=== PATIENT | female | born 1945 | race Caucasian/White ===

== ENCOUNTER → 2021-11-27 08:34 | Outpatient (BNVA) | payer MEDICARE, OTHER, SELFPAY | PROVIDERS: Visit Provider Internal Medicine | DX: R76.8 Other specified abnormal immunological findings in serum (principal); M25.50 Pain in unspecified joint; M35.00 Sjogren syndrome, unspecified; G62.9 Polyneuropathy, unspecified; Z11.59 Encounter for screening for other viral diseases; R53.83 Other fatigue | CPT/HCPCS: 36415; 73120; 80053; 81003; 82533; 82550; 82607; 82728; 83516; 83540; 83735; 84425; 84443; 85025; 85651; 86140; 86160; 86162; 86200; 86235; 86255; 86376; 86431; 86704; 86803; 87340; 99204; 99214 ==

== ENCOUNTER 2021-11-27 10:51 | Outpatient (CLI) | payer MEDICARE, OTHER, SELFPAY ==
--- NOTE | 2021-11-27 11:10 | XR_ITS ---
WS: [id number] Right hand, 2 views, 11/27/2021 Clinical Data: R76.8 - Other specified abnormal immunological findings i... Comparison: None. Findings: No fractures or dislocations are seen. The soft tissues are unremarkable. The joint space s are normal XR/XR hand RT 2V [id number] Impression: Negative right hand.
--- NOTE | 2021-11-27 11:10 | XR_ITS ---
WS: [id number] Left hand, 2 views, 11/27/2021 Clinical Data: R76.8 - Other specified abnormal immunological findings i... Comparison: None. Findings: No fractures or dislocations are seen. The soft tissues are unremarkable. The joint spaces are normal No periarticular demineralization or calcifications are seen. XR/XR hand LT 2V [id number] Impression: Negative left hand.
[2021-11-27 11:46] LABS: Add Urine Microscopic? NO; Charge for UA Resulting for Rev
[2021-11-27 11:58] LABS: Bilirubin Urine Neg (Negative); Blood Urine Neg (Negative); Glucose Urine UA Norm (Normal); Ketones Urine Negative (Negative); Leukocyte Esterase Urine Negative (Negative); Nitrate Urine Negative (Negative); Protein Urine Neg (Negative); Specific Gravity, Urine 1.025 (1.005-1.030); Urine Appearance Clear (CLEAR); Urine Color Yellow (Yellow); Urobilinogen Urine Norm (Negative); pH Urine 5 (5-7)
[2021-11-27 12:00] LABS: Basophils # 0.1 10^3/uL (0.0-0.1); Basophils % 1.3 %; Eosinophils # 0.2 10^3/uL (0.0-0.8); Eosinophils % 2.8 %; Hemoglobin 14.7 g/dL (11.5-15.3); Lymphocytes # 1.5 10^3/uL (0.8-4.8); Lymphocytes % 28.7 %; Mean Corpuscular HGB Conc 31.3 g/dL (30.0-36.0); Mean Corpuscular Hemoglobin 30.4 pg (28.0-34.0); Mean Corpuscular Volume 97.3 fl (81-99); Mean Platelet Volume 11.5 fL (7.4-10.4); Monocytes # 0.7 10^3/uL (0.2-0.9); Monocytes % 13.3 %; Neutrophils # 2.83 10^3/uL (1.8-7.7); Neutrophils % 53.7 %; Nucleated Red Blood Cells % 0 %; Platelet Count 175 10^3/cmm (130-400); Red Blood Count 4.83 10^6/uL (4.1-5.3); Red Cell Distribution Width 13.7 % (12.1-15.1); White Blood Count 5.3 10^3/uL (4.0-10.0)
[2021-11-27 12:12] LABS: Erythrocyte Sedimentation Rate 62 mm/hr (0-15)
[2021-11-27 12:31] LABS: Alanine Aminotransferase 15 U/L (0-33); Albumin Level 4.1 g/dL (3.5-5.2); Alkaline Phosphatase 95 IU/L (35-105); Anion Gap 19.2 (5-19); Aspartate Amino Transferase 19 U/L (0-32); Blood Urea Nitrogen 10 mg/dL (8-23); C Reactive Protein 5.5 mg/L (0.0-4.9); Calcium 8.7 mg/dL (8.5-10.5); Carbon Dioxide 24 mmol/L (22-29); Chloride 100 mmol/L (98-107); Creatine Phosphokinase 67 U/L (26-192); Ferritin 69 ng/mL (15-150); Globulin 3.3 g/dL (1.3-4.6); Glucose 90 mg/dL (65-115); Iron 84 ug/dL (37-145); Magnesium 1.8 mg/dL (1.7-2.3); Osmolality Calculated 287 mOsm/kg (285-295); Potassium 4.2 mmol/L (3.5-5.1); Sodium 139 mmol/L (136-145); Thyroid Stimulating Hormone 4.01 uIU/mL (0.27-4.20); Total Protein 7.4 g/dL (6.6-8.7); Vitamin B12 537 pg/mL (232-1245)
[2021-11-27 13:02] LABS: Complement C3 183 mg/dL (90-180)
[2021-11-27 13:35] LABS: Cortisol Random 2.78 ug/dL (2.47-19.5); Hepatitis B Core AB, Total Non-Reactive (Nonreactive); Hepatitis B Surface Antigen Non-Reactive (Nonreactive); Hepatitis C Virus Antibody Non-Reactive (Nonreactive)
[2021-11-28 11:17] LABS: COMPLEMENT COMPONENT C3C 192 mg/dL (83-193); COMPLEMENT COMPONENT C4C 46 mg/dL (15-57)
[2021-11-28 13:08] LABS: CENTROMERE B ANTIBODY <1.0 NEG AI (<1.0 NEG); JO-1 ANTIBODY <1.0 NEG AI (<1.0 NEG); RNP ANTIBODY <1.0 NEG AI (<1.0 NEG); SCL-70 ANTIBODY <1.0 NEG AI (<1.0 NEG); SJOGREN'S ANTIBODY (SS-A) <1.0 NEG AI (<1.0 NEG); SM ANTIBODY <1.0 NEG AI (<1.0 NEG); SS-B <1.0 NEG AI (<1.0 NEG)
[2021-11-28 14:59] LABS: THYROID PEROXIDASE ANTIBODIES 1 IU/mL (<9)
[2021-11-28 16:58] LABS: Cyclic Citrullinated Peptide <16 UNITS
[2021-11-29 12:13] LABS: COMPLEMENT, TOTAL (CH50) >60 U/mL (31-60)
[2021-12-01 20:42] LABS: Vitamin B1(Thiamin) Plas/Ser 8 nmol/L (8-30)
[2021-12-02 13:48] LABS: ANA SCREEN, IFA POSITIVE (NEGATIVE)
[2021-12-03 13:18] LABS: DNA AB (DS) CRITHIDIA,IFA NEGATIVE (NEGATIVE)
== END 2021-11-27 10:52 | disposition home or self-care (01) ==
LOC: LAB 11:06
PROVIDERS: PCP Nurse Practitioner Family; Visit Provider Internal Medicine
DX: G62.9 Polyneuropathy, unspecified (principal); M25.50 Pain in unspecified joint; M35.00 Sjogren syndrome, unspecified; R53.83 Other fatigue; R76.8 Other specified abnormal immunological findings in serum; Z11.59 Encounter for screening for other viral diseases
CPT/HCPCS: 36415; 73120; 80053; 81003; 82533; 82550; 82607; 82728; 83516; 83540; 83735; 84425; 84443; 85025; 85651; 86140; 86160; 86162; 86200; 86235; 86255; 86376; 86431; 86704; 86803; 87340

== ENCOUNTER → 2021-12-10 10:38 | Outpatient (BNVA) | payer MEDICARE, OTHER, SELFPAY | PROVIDERS: PCP Nurse Practitioner Family; Visit Provider Internal Medicine | DX: R76.8 Other specified abnormal immunological findings in serum (principal); M25.50 Pain in unspecified joint; R70.0 Elevated erythrocyte sedimentation rate; Z79.52 Long term (current) use of systemic steroids; Z87.891 Personal history of nicotine dependence | CPT/HCPCS: 99214 ==